=== PATIENT | female | born 1985 | race African-American/Black ===

== ENCOUNTER 2022-09-02 05:10 | Inpatient (IN) | payer MEDICAID ==
[~2022-09-02] VITALS: Ht 165.1 cm; Wt 72.6 kg
[2022-09-02] MEDS ORDERED: PREN-176 PO (06:24)
[2022-09-02] MEDS ORDERED: LIDOCAINE HCL 1% 20ML VIAL (Pyxis) INJ INFIL SCH (07:00)
[2022-09-02] MEDS ORDERED: METHYLERGONOVINE MALEATE 0.2 MG/ML IM PRN (07:00)
[2022-09-02] MEDS ORDERED: NALOXONE HCL 0.4 MG/ML 1ML VIAL IM PRN (07:00)
[2022-09-02] MEDS ORDERED: BUTORPHANOL TARTRATE 2 MG/ML VIAL IV PRN ×2 (07:00→19:00)
[2022-09-02] MEDS ORDERED: OXYTOCIN 30 UNITS/500ML NS PMX 500 ML IV SCH (07:00)
[2022-09-02] MEDS ORDERED: AMPICILLIN 2GM in NS 100ML 100 ML IV SCH (07:30)
[2022-09-02 08:27] LABS: BASOPHILS % 0.4 % (0.0-2.0); EOSINOPHILS % 0.9 % (0.0-5.0); LYMPHOCYTES % 16.7 % (20.0-50.0); MEAN CORPUSCULAR HEMOGLOBIN 30.8 pg (28.0-32.0); MEAN PLATELET VOLUME 9.1 fl (7.4-10.4); MONOCYTES % 6.1 % (2.0-8.0); NEUTROPHILS % 75.9 % (40.0-76.0); PLATELET 226 x1000/uL (130-400); RED BLOOD CELL COUNT 3.26 mill/uL (4.2-5.4); RED CELL DISTRIBUTION WIDTH 14.2 % (11.6-14.6)
[2022-09-02 08:36] LABS: CLARITY URINE CLEAR (CLEAR); COLOR URINE YELLOW (YELLOW); KETONES URINE 1+ (NEGATIVE); LEUKOCYTE ESTERASE URINE NEGATIVE (NEGATIVE); NITRITE URINE NEGATIVE (NEGATIVE); OCCULT BLOOD URINE 2+ (NEGATIVE); PROTEIN URINE TRACE (NEGATIVE); SPECIFIC GRAVITY URINE 1.012 (1.005-1.030)
[2022-09-02 08:38] LABS: INR 0.9
[2022-09-02 08:51] LABS: *AMPHETAMINES SCREEN URINE NEGATIVE (NEGATIVE); *BARBITURATES SCREEN URINE NEGATIVE (NEGATIVE); *BENZODIAZEPINES SCREEN URINE NEGATIVE (NEGATIVE); *COCAINE SCREEN URINE NEGATIVE (NEGATIVE); METHADONE URINE SCREEN NEGATIVE (NEGATIVE); OPIATES URINE SCREEN NEGATIVE (NEGATIVE); PHENCYCLIDINE URINE SCREEN NEGATIVE (NEGATIVE)
[2022-09-02 08:57] LABS: CANNABINOID URINE SCREEN PRESUMTIVE POSITIVE (NEGATIVE)
[2022-09-02] MEDS: LACTATED RINGERS 1,000 ML IV SCH (09:19)
[2022-09-02 12:15] LABS: HEPATITIS B SURFACE ANTIGEN NEGATIVE
[2022-09-02] MEDS ORDERED: AMPICILLIN 1,000 MG in SODIUM CHLORIDE 0.9% 50 ML IV SCH (13:30)
[2022-09-02] MEDS ORDERED: OXYTOCIN 10 UNITS/ML 1ML ONE ×2 (17:57→19:06)
[2022-09-02] MEDS ORDERED: FENTANYL CITRATE/PF 50MCG/ML 2ML VIAL ONE (17:57)
[2022-09-02] MEDS ORDERED: EPHEDRINE SULFATE 50MG/ML VIAL ONE (17:57)
[2022-09-02] MEDS ORDERED: DIPHENHYDRAMINE 50MG/ML VIAL ONE (17:57)
[2022-09-02] MEDS ORDERED: ONDANSETRON HCL 4MG/2ML INJ ONE (17:57)
[2022-09-02] MEDS ORDERED: MORPHINE SULFATE/PF 1MG/ML 10ML AMP ONE (17:57)
[2022-09-02] MEDS ORDERED: CEFAZOLIN SODIUM 1000MG/VIAL ONE (17:57)
[2022-09-02] MEDS ORDERED: METOCLOPRAMIDE HCL 10MG/2ML VIAL ONE (18:10)
[2022-09-02] MEDS ORDERED: CITRIC ACID/SODIUM CITRATE SOLN 30ML UDC PO NR (18:15)
[2022-09-02] MEDS ORDERED: KETOROLAC 60MG/2ML VIAL IM ONE (18:52)
[2022-09-02] MEDS ORDERED: DIPHENHYDRAMINE 50MG/ML VIAL IV PRN (19:00)
[2022-09-02] MEDS ORDERED: NALOXONE HCL 0.4 MG/ML 1ML VIAL IV PRN (19:00)
[2022-09-02] MEDS ORDERED: KETOROLAC 30MG/ML VIAL IV PRN (20:00)
[2022-09-02] MEDS ORDERED: HYDROCODONE/ACETAMINOPHEN 5/325MG TABLET PO PRN (20:00)
[2022-09-02] MEDS ORDERED: RHO(D) IMMUNE GLOBULIN 300 MCG/SYR IM PRN (20:00)
[2022-09-02] MEDS ORDERED: LANOLIN OINT 7GM TUBE TOP PRN (20:00)
[2022-09-02] MEDS ORDERED: DEXT 5%/LACTATED RINGERS 1,000 ML IV SCH (20:00)
[2022-09-02] MEDS ORDERED: BISACODYL 10MG SUPP PR PRN (20:00)
[2022-09-02] MEDS ORDERED: MAGNESIUM 20 G PREMIX (L & D) 500 ML IV SCH (20:00)
[2022-09-02] MEDS ORDERED: NALOXONE HCL 0.4MG/ML VIAL IV PRN (20:15)
[2022-09-02] MEDS ORDERED: DIPHENHYDRAMINE 25MG CAPSULE PO PRN (21:00)
[2022-09-02] MEDS: ONDANSETRON HCL 4MG/2ML INJ IV PRN (22:01)
[2022-09-02 22:20] VITALS: BP 114/62
[2022-09-02] MEDS: OXYTOCIN 30 UNITS/500ML NS PMX 500 ML IV SCH (23:39)
[2022-09-02 23:40] VITALS: BP 108/58
[2022-09-03] MEDS: KETOROLAC 30MG/ML VIAL IV SCH ×2 (02:13→08:27)
[2022-09-03 04:00] VITALS: BP 103/67
[2022-09-03] MEDS: ONDANSETRON HCL 4MG/2ML INJ IV PRN (04:18)
[2022-09-03] MEDS: OXYTOCIN 30 UNITS/500ML NS PMX 500 ML IV SCH (04:20)
[2022-09-03 06:45] LABS: BASOPHILS % 0.2 % (0.0-2.0); EOSINOPHILS % 0.1 % (0.0-5.0); LYMPHOCYTES % 7.5 % (20.0-50.0); MEAN CORPUSCULAR HEMOGLOBIN 29.8 pg (28.0-32.0); MEAN CORPUSCULAR VOLUME 89.2 fL (81.0-99.0); MEAN PLATELET VOLUME 8.6 fl (7.4-10.4); MONOCYTES % 6.3 % (2.0-8.0); NEUTROPHILS % 85.9 % (40.0-76.0); PLATELET 195 x1000/uL (130-400); RED CELL DISTRIBUTION WIDTH 14.2 % (11.6-14.6)
[2022-09-03 06:56] LABS: HEMATOCRIT. 20.6 % (36.0-48.0); HEMOGLOBIN. 6.9 g/dL (12.0-16.0)
[2022-09-03 08:00] VITALS: BP 102/60
[2022-09-03] MEDS: FERROUS SULFATE 325MG TABLET PO SCH ×3 (08:26→19:30)
[2022-09-03] MEDS: MAGNESIUM/ALUMINUM HYDROXIDE/SIMETHICONE 30ML UDC PO SCH ×2 (08:26→21:39)
[2022-09-03] MEDS: LACTATED RINGERS 1,000 ML IV SCH (08:27)
[2022-09-03] MEDS: SIMETHICONE 80MG TABLET CHEW PO SCH ×2 (08:27→21:40)
[2022-09-03] MEDS: PRENATAL VIT/FE FUMARATE/FA TABLET PO SCH (08:27)
[2022-09-03 16:00] VITALS: BP 93/50
[2022-09-03] MEDS: IBUPROFEN 800MG TABLET PO PRN (19:30)
[2022-09-03 20:00] VITALS: BP 95/53
[2022-09-03] MEDS: DOCUSATE SODIUM 100MG CAPSULE PO SCH (21:40)
[2022-09-04 04:00] VITALS: BP_SYST 101; BP_SYST 115; BP_DIAS 55; BP_DIAS 68
[2022-09-04 06:55] LABS: BASOPHILS % 0.2 % (0.0-2.0); EOSINOPHILS % 0.4 % (0.0-5.0); LYMPHOCYTES % 16.7 % (20.0-50.0); MEAN CORPUSCULAR HEMOGLOBIN 29.9 pg (28.0-32.0); MEAN CORPUSCULAR VOLUME 89.5 fL (81.0-99.0); MEAN PLATELET VOLUME 8.6 fl (7.4-10.4); MONOCYTES % 7.1 % (2.0-8.0); NEUTROPHILS % 75.6 % (40.0-76.0); PLATELET 194 x1000/uL (130-400); RED BLOOD CELL COUNT 1.89 mill/uL (4.2-5.4); RED CELL DISTRIBUTION WIDTH 14.5 % (11.6-14.6)
[2022-09-04 07:00] LABS: HEMATOCRIT. 16.9 % (36.0-48.0); HEMOGLOBIN. 5.7 g/dL (12.0-16.0)
[2022-09-04] MEDS ORDERED: FERROUS SULFATE 325MG TABLET PO SCH (07:30)
[2022-09-04 08:00] VITALS: BP 99/55
[2022-09-04] MEDS: FERROUS SULFATE 325MG TABLET PO SCH ×3 (08:48→18:02)
[2022-09-04] MEDS: SIMETHICONE 80MG TABLET CHEW PO SCH ×3 (08:49→18:02)
[2022-09-04] MEDS: PRENATAL VIT/FE FUMARATE/FA TABLET PO SCH (08:49)
[2022-09-04] MEDS: IBUPROFEN 800MG TABLET PO PRN (08:49)
[2022-09-04] MEDS: MAGNESIUM/ALUMINUM HYDROXIDE/SIMETHICONE 30ML UDC PO SCH ×4 (08:49→22:14)
[2022-09-04 16:00] VITALS: BP 88/54
[2022-09-04] MEDS: IBUPROFEN 400MG TABLET PO PRN (18:02)
[2022-09-04 18:55] VITALS: BP 92/57
[2022-09-04 21:08] VITALS: BP 102/54
[2022-09-04] MEDS: DOCUSATE SODIUM 100MG CAPSULE PO SCH (22:13)
[2022-09-05] MEDS: IBUPROFEN 400MG TABLET PO PRN (01:22)
[2022-09-05 04:04] VITALS: BP 99/53
[2022-09-05] MEDS: IBUPROFEN 800MG TABLET PO PRN (06:38)
[2022-09-05 06:55] LABS: BASOPHILS % 0.3 % (0.0-2.0); EOSINOPHILS % 1.7 % (0.0-5.0); LYMPHOCYTES % 22.1 % (20.0-50.0); MEAN CORPUSCULAR HEMOGLOBIN 30.8 pg (28.0-32.0); MEAN CORPUSCULAR VOLUME 90.6 fL (81.0-99.0); MEAN PLATELET VOLUME 8.1 fl (7.4-10.4); MONOCYTES % 7.1 % (2.0-8.0); NEUTROPHILS % 68.8 % (40.0-76.0); PLATELET 227 x1000/uL (130-400); RED BLOOD CELL COUNT 1.88 mill/uL (4.2-5.4); RED CELL DISTRIBUTION WIDTH 14.4 % (11.6-14.6)
[2022-09-05 07:01] LABS: HEMOGLOBIN. 5.8 g/dL (12.0-16.0)
[2022-09-05] MEDS ORDERED: DOCU-150 PO (07:01)
[2022-09-05] MEDS ORDERED: IBUP-2030 PO (07:01)
[2022-09-05] MEDS ORDERED: FERR-63 PO (07:01)
[2022-09-05 08:00] VITALS: BP 98/56
[2022-09-05] MEDS ORDERED: MEDROXYPROGESTERONE ACETATE 150MG/ML VIAL IM NR (08:00)
[2022-09-05] MEDS: MAGNESIUM/ALUMINUM HYDROXIDE/SIMETHICONE 30ML UDC PO SCH (08:18)
[2022-09-05] MEDS: PRENATAL VIT/FE FUMARATE/FA TABLET PO SCH (08:19)
[2022-09-05] MEDS: FERROUS SULFATE 325MG TABLET PO SCH (08:19)
[2022-09-05] MEDS: SIMETHICONE 80MG TABLET CHEW PO SCH (08:19)
== END 2022-09-05 12:25 | disposition home or self-care (01) | DRG 540 ==
LOC: OBSVTOIN 05:10 → 8 EST LDRP 05:10 → 8EST 22:56
PROVIDERS: ADMIT Obstetrics & Gynecology; ATTEND Obstetrics & Gynecology
PROC: 10D00Z1 Extraction of Products of Conception, Low, Open Approach (ICD-10-PCS; principal; 2022-09-02)
DX: O42.913 Preterm premature rupture of membranes, unspecified as to length of time between rupture and onset of labor, third trimester (principal); O41.03X0 Oligohydramnios, third trimester, not applicable or unspecified; O99.324 Drug use complicating childbirth; Z20.822 Contact with and (suspected) exposure to COVID-19; O32.2XX0 Maternal care for transverse and oblique lie, not applicable or unspecified; F12.10 Cannabis abuse, uncomplicated; O99.02 Anemia complicating childbirth; Z37.0 Single live birth; Z3A.36 36 weeks gestation of pregnancy
CPT/HCPCS: 36415; 76805; 76818; 80305; 80349; 81003; 85025; 86592; 86703; 86762; 86850; 86900; 87340; 87426; 88307; 99281; J0290; J0690; J1050; J1200; J1885; J2274; J2405; J2765; J3010; J3490; J7120; J7121; J2590